=== PATIENT | male | born 1995 | race African-American/Black ===

== ENCOUNTER 2019-06-14 17:22 | Emergency (ER) | payer OTHER, SELFPAY ==
[2019-06-14 17:23] VITALS: BP 115/79; PULSE 88; RESP 15; TEMP 36.5; O2SAT 99; BMI 28.1
--- NOTE | 2019-06-14 17:30 | RAD_ITS ---
STUDY: X-RAY - RIGHT SHOULDER REASON FOR EXAM: Male, 23 years old. Patient complains of right shoulder pain off and on for 6 months, pain became worse yesterday, has pain with movement TECHNIQUE: 4 view(s) of the shoulder. COMPARISON: None. FINDINGS: Normal glenohumeral articulation. Normal acromioclavicular joint. Normal acromion. Normal humeral head and visualized proximal humerus. The soft tissue structures are unremarkable. Normal visualized pulmonary apex. RAD/Shoulder min 2 Views IMPRESSION: Within normal limits examination. Electronically Signed: Leandra Bowman MD at 17:58 EST Tel , Service support ,
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
[2019-06-14 18:11] VITALS: RESP 16
== END 2019-06-14 18:11 | disposition home or self-care (01) ==
LOC: ED 18:04
PROVIDERS: Emergency Provider Emergency Medicine
DX: S43.401A Unspecified sprain of right shoulder joint, initial encounter (principal); X50.9XXA Other and unspecified overexertion or strenuous movements or postures, initial encounter; Y93.9 Activity, unspecified; Y92.9 Unspecified place or not applicable; Y99.9 Unspecified external cause status
CPT/HCPCS: 73030; 99282